=== PATIENT | female | born 1970 | race Caucasian/White ===

== ENCOUNTER 2018-02-04 05:21 | Day surgery (SDC) | payer BC, SELFPAY ==
[2018-02-04] VITALS (7 sets, daily range): BP systolic 82–150; BP diastolic 59–88; PULSE 50–76; RESP 16–18; TEMP 35.8–36.4; O2SAT 95–100; BMI 34.9
--- NOTE | 2018-02-04 | GALL_PTH ---
PATIENT: CRIS HILL LOC: [facility] [place] U#:[id number] AGE/SX: 47/F ROOM: RE02/04/[address]: Dr. Michoacano Romano MD : 1970 BED: DIS: 02/04/2018 SPEC #: [id number] RECD: 02/04/18 11:53 STATUS: ARDEN CHARIS #: [id number] SO: 02/04/18 00:[address]: Michoacano Romano DEPT: SURGICAL PATHOLOGY RECD BY: Ra Benitez ENTERED: 02/04/18 11:54 SP TYPE: TRANG GRIFFITH DR: MD Zoe Gannon PA-C Tissues: Gallbladder, NOS Procedures: Surgery Specimen Level III HEADER OPERATION: Laparoscopic cholecystectomy PRE-OP DIAGNOSIS: Acute cholelithiasis TISSUE SUBMITTED: Gallbladder MICROSCOPIC DIAGNOSIS Gallbladder, cholecystectomy: Cholesterolosis, chronic cholecystitis and cholelithiasis. AM:brenna 02/05/18 MICROSCOPIC DESCRIPTION Slides are reviewed. GROSS DESCRIPTION Received is one container labeled with the patient's name and designated gallbladder. The specimen consists of a gallbladder measuring 7.5 cm in length and up to 3.5 cm in diameter. The external surface is pink-plaza, smooth and glistening for the most part. Focally it is granular, hemorrhagic and contains cautery artifact. The gallbladder contains a small amount of green-yellow mucoid bile and multiple (five) multifaceted plaza-yellowish stones measuring in aggregate 5 x 3.5 x 2 cm and 1.5 cm in average dimension. The mucosa is bile-stained and without any mass lesions. The gallbladder wall measures 0.3 cm in thickness. System Administrator sections from the gallbladder and the cystic duct are submitted in one cassette. / SJ:brenna 02/04/18 TC:3 CPT: 72211
[2018-02-04] MEDS: Cefazolin 2 GM in 0.9% Normal Saline 100 ML IV (07:21)
--- NOTE | 2018-02-04 07:31 | PCM.OPRPT ---
Problem List (1) Calculus of gallbladder with chronic cholecystitis without obstruction Status: Acute (2) Right upper quadrant pain Status: Acute Report of Operation Date of Procedure: 02/04/18 Pre-Operative Diagnosis: k80.10 calculus of the gallbladder with chronic cholecystitis without obstruction. r10.11 right upper quadrant abdominal pain Post-Operative Diagnosis: Same Surgery/Procedure Performed:: [id number] laparoscopic cholecystectomy Type of Anesthesia:: General Anesthesiologist: Jeyson Marmolejo Estimated Blood Loss (mL): < 25 cc Fluids Replaced: 800 lr Description of Procedure: Patient brought into the operating room and placed in the supine position. Under excellent general endotracheal intubation the abdomen was sterilely prepped and draped in the usual fashion. Local was injected infraumbilically. Dissection was carried down to the fascia. The fascia was grasped with a Stratford. Veress needle was placed inside the abdomen. The abdomen was insufflated to 15 torr. A 10/12 trocar was placed without difficulty. Patient was placed in the head up and rotated to the left position. Subxiphoid #5 trocar was placed, inferior to this another #5 trocar was placed, laterally a #5 trocar was placed. All of these under direct visualization without injury to underlying structures. Fundus of the gallbladder was grasped and retracted in a cephalad direction infundibulum was grasped and retracted laterally I dissected out the cystic artery and the cystic duct. Place hemoclips proximally and distally on the artery and proximally and distally on the duct. I ligated both the artery and the duct. I deliver the gallbladder from the gallbladder bed with use of electrocautery. I placed a specimen a specimen bag and delivered through the umbilical port without difficulty. I reinflated the abdomen used electrocautery on the liver bed had good hemostasis but the whole liver bed was very raw so I decided to place some Marilee and there is well. I saw no active bleeding at the end of my case. Remove the trochars under direct visualization. I closed the fascia the umbilical port with a [id number] stitch of 0 Vicryl. Skin incisions were closed with subcuticular stitches of 4-0 Monocryl. Steri-Strips are applied sterile dressings were applied in the patient tolerated the procedure well. - Admit VTE Documentation VTE Present on Admission: No VTE Mechan Device Prophylaxis: SCD's VTE Pharm Prophylaxis ordered?: No Reason prophylaxis not ordered:: Treatment Not Indicated
--- NOTE | 2018-02-04 07:32 | PCM.DC.GB ---
Discharge Diet: Light diet - advance as tolerated Discharge Activity: May Not Drive - for 2-3 days or while taking narcotic pain medications., - - Do not drive, work heavy equipment or sign legal documents for 24 hours. May shower in (days): 1 - with the bandage in place. Additional Activity Instructions:: Pain medication may cause nausea. You should typically eat light foods as you take your pain medications. Pain medication may also cause constipation. If this is a problem for you, please discuss with your doctor. Call your doctor if your incision/area has: Continuous Slow Oozing, Sudden Increased Bleeding, Increased Pain/ Swelling, Increased Redness, Foul Smelling Discharge Call your doctor if you observe: Fever of 101 or Higher Suture Line Care: Avoid Pulling/Pushing, Avoid Pinching/Bending Additional Dressing/Incision Instructions:: Leave operative bandaids on for 2 days. When you remove dressing, leave Steri-Strips on until your follow-up appointment, or until the Steri-Strips fall off on their own. Allergies/Adverse Reactions: Allergies No Known Allergies Allergy (Verified 01/28/18 08:22) Medications to take at Discharge cholecalciferol (vitamin D3) 2,000 unit capsule 2,000 unit PO QDAY 01/20/18 ibuprofen 600 mg tablet 600 mg PO TID-QID PRN 01/20/18 Acetaminophen/Codeine #3 [Tylenol#3] 1 - 2 tab PO Q4H PRN PRN 4 Days #30 tab 02/04/18 The following prescriptions were given: Acetaminophen/Codeine #3 [Tylenol#3] 1 - 2 tab PO Q4H PRN PRN 4 Days #30 tab PRN Reason: Pain Primary Care Physician: Zoe Gamboa PA-C [Primary Care Provider] - Test Results: Test results from this visit will be discussed in further detail at your follow-up appointment, if applicable. Please Follow Up With: Michoacano Romano MD - Please call [phone] to schedule an appointment. When: 7 days after your surgery.
[2018-02-04] MEDS: Bupivacaine 0.5% PF 10 ML VIAL (08:20)
[2018-02-04] MEDS: Ibuprofen 600 MG Tablet PO (10:58)
== END 2018-02-04 12:01 | disposition home or self-care (01) ==
LOC: SDC 05:24 → AC 05:24
PROVIDERS: Family Provider Family Medicine; PCP Family Medicine; Visit Provider Surgery
PROC: (CPT 47610; principal; 2018-02-04 06:55)
DX: K80.12 Calculus of gallbladder with acute and chronic cholecystitis without obstruction (principal); E78.00 Pure hypercholesterolemia, unspecified; M19.90 Unspecified osteoarthritis, unspecified site; I10 Essential (primary) hypertension
CPT/HCPCS: 47562; 88304; 93005; J7120; J2405

== ENCOUNTER → 2018-06-18 10:48 | Outpatient (CLI) | payer BC, SELFPAY ==
--- NOTE | 2018-06-18 10:51 | BI_ITS ---
MAMMOGRAPHY - BILATERAL SCREENING REASON FOR EXAM: Female, 47 years old. Routine annual screening examination. PERTINENT HISTORY: Sister with breast cancer. Aunt with breast cancer. History of bilateral breast reduction surgery. TECHNIQUE: Digital bilateral breast jeff (3D mammographic acquisition) in the CC and MLO projections. 2-D mediolateral oblique (MLO) and craniocaudad (CC) views of both breasts were obtained. CAD: Full Field Digital Mammography with Computer Added Detection was performed. COMPARISON: Comparison is made with prior examination January 06, 2017. FINDINGS: Breast Composition: There are scattered areas of fibroglandular density. There are no dominant masses or suspicious calcifications. Stable benign-appearing bilateral cervical lymph nodes. Stable venous prominence in the right axillary region. No other significant abnormalities are identified. There has been no significant change since the prior study. BI/SCREENING MAMM (CAD), BILAT IMPRESSION: Stable bilateral screening mammogram. Yearly follow-up mammogram recommended. (A) ASSESSMENT CATEGORY: BIRADS Category 2: Benign. A letter regarding these results will be sent to the patient by the facility within 30 days. Approximately 10% of breast cancers are not detected by mammography. A normal mammogram should not delay biopsy of a clinically suspicious abnormality. [id number] Electronically Signed: Mendoza Brown MD at 12:35 EST Tel [phone], Service support ,
--- OUTSIDE RECORDS SUMMARY | 2018-08-22 19:36 | XMS RPT_ITS ---
:1970 Author Organization OHIP Care Team Providers Name Role Phone ROLDAN GAMBOA Admitting ROLDAN Orosco Attending Unavailable HILLS, ROLDAN Primary Care Unavailable HILLS, ROLDAN Consulting Unavailable PROVIDER, UNKNOWN Consulting Unavailable [place], Roldan PA-C Attending Unavailable [place], Roldan PA-C Referring Unavailable [place], Roldan PA-C Primary Care Unavailable [place], Michoacano Attending Unavailable [place], Roldan PA-C Referring Unavailable [place], Roldan PA-C Primary Care Unavailable Juan Antonio, Michoacano Attending Unavailable Juan Antonio, Michoacano Referring Unavailable [place], Roldan PA-C Primary Care Unavailable DeHortJeyson mathias Consulting Unavailable Núñez PA-C, Rani Attending Unavailable [place], Roldan PA-C Referring Unavailable [place], Roldan PA-C Primary Care Unavailable Núñez PA-C, Rani Attending Unavailable Núñez PA-C, Rani Referring Unavailable [place], Roldan PA-C Primary Care Unavailable Juan Antonio, Michoacano Attending Unavailable Polo, Michoacano Attending Unavailable Juan Antonio, Michoacano Referring Unavailable PROBLEMS PROBLEMS DATE TYPE CONDITION / CODE ATTENDING STATUS SOURCE 02/22/2018 Unknown K80.10 - Calculus Michoacano Romano Active Tanesha of gallbladder with [facility] cholecystitis Repository without obstruction / K80.10(ICD-10) 02/22/2018 Unknown R10.11 - Right Michoacano Romano Active Tanesha upper quadrant pain Community / R10.11(ICD-10) Hospital Repository 02/26/2018 Unknown I10 - Essential Michoacano Polo Active [facility] (primary) [facility] hypertension / Hospital I10(ICD-10) Repository PROCEDURES PROCEDURES No Procedure Records FoundRESULTS RESULTS SCREENING MAMM (CAD), Observed: 06/18/2018 Status: F Source: [facility] 10:51 AM [facility] REPOSITORY [facility] Imaging Services [address] [place] [address] SCREENING MAMM (CAD), BILAT MR#: [id number] Acct: [id number] Name: CRIS HILL Rep #: [id number] : 1970 F 47 From: Mendoza Brown MD PCP: Roldan Gamboa PA-C Status: REG CLI Study: SCREENING MAMM (CAD), BILAT Date of Exam: 06/18/18 Exam# [id number] Ordering Dr: Roldan Gamboa PA-C MAMMOGRAPHY - BILATERAL SCREENING REASON FOR EXAM: Female, 47 years old. Routine annual screening examination. PERTINENT HISTORY: Sister with breast cancer. Aunt with breast cancer. History of bilateral breast reduction surgery. TECHNIQUE: Digital bilateral breast jeff (3D mammographic acquisition) in the CC and MLO projections. 2-D mediolateral oblique (MLO) and craniocaudad (CC) views of both breasts were obtained. CAD: Full Field Digital Mammography with Computer Added Detection was performed. COMPARISON: Comparison is made with prior examination January 06, 2017. FINDINGS: Breast Composition: There are scattered areas of fibroglandular density. There are no dominant masses or suspicious calcifications. Stable benign-appearing bilateral cervical lymph nodes. Stable venous prominence in the right axillary region. No other significant abnormalities are identified. There has been no significant change since the prior study. BI/SCREENING MAMM (CAD), BILAT IMPRESSION: Stable bilateral screening mammogram. Yearly follow-up mammogram recommended. (A) ASSESSMENT CATEGORY: BIRADS Category 2: Benign. A letter regarding these results will be sent to the patient by the facility within 30 days. Approximately 10% of breast cancers are not detected by mammography. A normal mammogram should not delay biopsy of a clinically suspicious abnormality. [id number] Electronically Signed: Mendoza Brown MD at 12:35 EST Tel [phone], Service support , CC: VONDA Gamboa Industrial Sweeper Cleaner: Signed SURGERY VISIT REPORT Observed: 02/18/2018 Status: F Source: [place] 3:51 PM [facility] RE[facility]ITORY [facility] [address] [place] [address] OFFICE VISIT Date of Service: 02/18/18 MR#: [id number] Acct: [id number] Name: CRIS HILL Rep #: [id number] : 1970 Provider: Rani Núñez PA-C Age/Sex: 47/F Location: [facility] Status: Signed Intake Intake Visit Reasons: 1 WK F/U Gall Bladder Surgery DP 02/04 Chief Complaint: f/u lap tamika DP 9- Marble Mason Required: No Is patient in pain?: No Allergies No Known Allergies Allergy (Verified 02/18/18 13:18) Medications cholecalciferol (vitamin D3) 2,000 unit capsule 2,000 unit PO QDAY 01/20/18 [History Confirmed 01/28/18] ibuprofen 600 mg tablet 600 mg PO TID-QID PRN 01/20/18 [History Confirmed 01/28/18] Acetaminophen/Codeine #3 [Tylenol#3] 1 - 2 tab PO Q4H PRN PRN 4 Days #30 tab 02/04/18 [Rx] Is last menstrual period known: No Post menopausal: No Patient : No Subjective Details: Patient is a 47 y/o female I am following for acute cholelithiasis. Dr. Romano performed a laparoscopic cholecystectomy on 02/04/18. Patient tolerated the procedure well. Pathology demonstrated chronic cholecystitis and cholelithiasis. Patient notes intermittent right-sided sharp chest discomfort. She is unsure what brings this discomfort on. Patient notes her appetite has been normal. She notes her bowel habits have been slow to return. Patient returns today for a follow-up. She is noting her right- sided sharp chest discomfort has resolved. She notes her bowel habits have returned to normal. Objective Details: Abdomen- incisions c/d/i. No erythema or infection noted. Assessment AND Plan Problems 1. Calculus of gallbladder with chronic cholecystitis without obstruction K80.10 Plan - RTW letter given to patient for 03/01/18. - Follow-up as needed Coding Level of Care Code Global Post Op Diagnoses Calculus of gallbladder with chronic cholecystitis without obstruction K80.10 02/18/18 1551 <Electronically signed by Rani Núñez PA-C> Date Rani Núñez PA-C Cosigner Signature: Date (if applicable) CC: OPERATIVE REPORT Observed: 02/12/2018 Status: F Source: [place] 7:15 PM [facility] REPOSITORY [facility] Medical Records Department [address] [place] [address] Operative Report 02/04/18 0731 MR#: [id number] Acct: [id number] Name: CRIS HILL Rep #: [id number] : 1970 47 From: Michoacano Romano MD PCP: Roldan Gamboa PA-C Status: [facility] Y Location: [facility] Problem List (1) Calculus of gallbladder with chronic cholecystitis without obstruction Status: Acute (2) Right upper quadrant pain Status: Acute Report of Operation Date of Procedure: 02/04/18 Pre-Operative Diagnosis: k80.10 calculus of the gallbladder with chronic cholecystitis without obstruction. r10.11 right upper quadrant abdominal pain Post-Operative Diagnosis: Same Surgery/Procedure Performed:: 39444 laparoscopic cholecystectomy Type of Anesthesia:: General Anesthesiologist: Jeyson Marmolejo Estimated Blood Loss (mL): < 25 cc Fluids Replaced: 800 lr Description of Procedure: Patient brought into the operating room and placed in the supine position. Under excellent general endotracheal intubation the abdomen was sterilely prepped and draped in the usual fashion. Local was injected infraumbilically. Dissection was carried down to the fascia. The fascia was grasped with a Sondheimer. Veress needle was placed inside the abdomen. The abdomen was insufflated to 15 torr. A 10/12 trocar was placed without difficulty. Patient was placed in the head up and rotated to the left position. Subxiphoid #5 trocar was placed, inferior to this another #5 trocar was placed, laterally a #5 trocar was placed. All of these under direct visualization without injury to underlying structures. Fundus of the gallbladder was grasped and retracted in a cephalad direction infundibulum was grasped and retracted laterally I dissected out the cystic artery and the cystic duct. Place hemoclips proximally and distally on the artery and proximally and distally on the duct. I ligated both the artery and the duct. I deliver the gallbladder from the gallbladder bed with use of electrocautery. I placed a specimen a specimen bag and delivered through the umbilical port without difficulty. I reinflated the abdomen used electrocautery on the liver bed had good hemostasis but the whole liver bed was very raw so I decided to place some Marilee and there is well. I saw no active bleeding at the end of my case. Remove the trochars under direct visualization. I closed the fascia the umbilical port with a euenbt-ye-doqrs stitch of 0 Vicryl. Skin incisions were closed with subcuticular stitches of 4-0 Monocryl. Steri- Strips are applied sterile dressings were applied in the patient tolerated the procedure well. - Admit VTE Documentation VTE Present on Admission: No VTE Mechan Device Prophylaxis: SCD's VTE Pharm Prophylaxis ordered?: No Reason prophylaxis not ordered:: Treatment Not Indicated 02/12/181914 <Electronically signed by Michoacano Romano MD> Date Michoacano Romano MD CC: VONDA Gamboa; Michoacano Romano MD; Jeyson Marmolejo MD Signed SURGERY VISIT REPORT Observed: 02/11/2018 Status: F Source: [place] 2:55 PM [facility] REPOSITORY [facility] [address] [place] [address] [address] [place] [address] OFFICE VISIT Date of Service: 02/11/18 MR#: [id number] Acct: [id number] Name: CRIS HILL Rep #: [id number] : 1970 Provider: Rani Núñez PA-C Age/Sex: 47/F Location: [facility] Status: Signed Intake Vital Signs02/11/18 Temperature 98.6 F 02/11/18 Temperature Source Oral Intake Visit Reasons: Gall Bladder Surgery DP 02/04 Chief Complaint: gallstones Marble Mason Required: No Is patient in pain?: No Allergies No Known Allergies Allergy (Verified 02/11/18 13:03) Medications cholecalciferol (vitamin D3) 2,000 unit capsule 2,000 unit PO QDAY 01/20/18 [History Confirmed 01/28/18] ibuprofen 600 mg tablet 600 mg PO TID-QID PRN 01/20/18 [History Confirmed 01/28/18] Acetaminophen/Codeine #3 [Tylenol#3] 1 - 2 tab PO Q4H PRN PRN 4 Days #30 tab 02/04/18 [Rx] Subjective Details: Patient is a 47 y/o female I am following for acute cholelithiasis. Dr. Romano performed a laparoscopic cholecystectomy on 02/04/18. Patient tolerated the procedure well. Pathology demonstrated chronic cholecystitis and cholelithiasis. Patient notes intermittent right-sided sharp chest discomfort. She is unsure what brings this discomfort on. Patient notes her appetite has been normal. She notes her bowel habits have been slow to return. Objective Details: Abdomen- soft, nontender. Incisions c/d/i. No erythema or infection noted. Hypoactive bowel sounds. Assessment AND Plan Problems 1. Calculus of gallbladder with chronic cholecystitis without obstruction K80.10 Plan - Recommend Miralax twice daily - Avoid acidic foods - Follow-up in 1 week Coding Level of Care Code Global Post Op Diagnoses Calculus of gallbladder with chronic cholecystitis without obstruction K80.10 02/11/18 1455 <Electronically signed by Rani Núñez PA-C> Date Rani Núñez PA-C Cosigner Signature: Date (if applicable) CC: DISCHARGE INSTRUCTION Observed: 02/04/2018 Status: F Source: [place] 7:33 AM [facility] REPOSITORY [facility] Medical Records Department [address] [place] [address] Instructions for Home/Discharge Instructions 02/04/18 0732 MR#: [id number] Acct: [id number] Name: CRIS HILL Rep #: [id number] : 1970 47 From: Michoacano Romano MD PCP: Roldan Gamboa PA-C Status: REG [facility] Discharge Diet: Light diet - advance as tolerated Discharge Activity: May Not Drive - for 2-3 days or while taking narcotic pain medications., - - Do not drive, work heavy equipment or sign legal documents for 24 hours. May shower in (days): 1 - with the bandage in place. Additional Activity Instructions:: Pain medication may cause nausea. You should typically eat light foods as you take your pain medications. Pain medication may also cause constipation. If this is a problem for you, please discuss with your doctor. Call your doctor if your incision/area has: Continuous Slow Oozing, Sudden Increased Bleeding, Increased Pain/ Swelling, Increased Redness, Foul Smelling Discharge Call your doctor if you observe: Fever of 101 or Higher Suture Line Care: Avoid Pulling/Pushing, Avoid Pinching/Bending Additional Dressing/Incision Instructions:: Leave operative bandaids on for 2 days. When you remove dressing, leave Steri-Strips on until your follow-up appointment, or until the Steri-Strips fall off on their own. Allergies/Adverse Reactions: Allergies No Known Allergies Allergy (Verified 01/28/18 08:22) Medications to take at Discharge cholecalciferol (vitamin D3) 2,000 unit capsule 2,000 unit PO QDAY 01/20/18 ibuprofen 600 mg tablet 600 mg PO TID-QID PRN 01/20/18 Acetaminophen/Codeine #3 [Tylenol#3] 1 - 2 tab PO Q4H PRN PRN 4 Days #30 tab 02/04/18 The following prescriptions were given: Acetaminophen/Codeine #3 [Tylenol#3] 1 - 2 tab PO Q4H PRN PRN 4 Days #30 tab PRN Reason: Pain Primary Care Physician: Roldan Gamboa PA-C [Primary Care Provider] - Test Results: Test results from this visit will be discussed in further detail at your follow-up appointment, if applicable. Please Follow Up With: Michoacano Romano MD - Please call [phone] to schedule an appointment. When: 7 days after your surgery. 02/04/18 0733 <Electronically signed by Michoacano Romano MD> Date Michoacano Romano MD CC: VONDA Gamboa; Jeyson Marmolejo MD GALLBLADDER Observed: 02/04/2018 Status: F Source: [place] 12:00 AM [facility] REPOSITORY Patient: CRIS HILL : 1970 (47/F) Acct Num: [id number] Phys: Michoacano Romano MD Unit Num: [id number] Loc: [facility] Specimen: [id number] Received: 02/04/18 - 1153 Spec Type: GALLBLADDE TISSUES TISSUES: Gallbladder, NOS GROSS DESCRIPTION Received is one container labeled with the patient's name and designated gallbladder. The specimen consists of a gallbladder measuring 7.5 cm in length and up to 3.5 cm in diameter. The external surface is pink-plaza, smooth and glistening for the most part. Focally it is granular, hemorrhagic and contains cautery artifact. The gallbladder contains a small amount of green- yellow mucoid bile and multiple (five) multifaceted plaza-yellowish stones measuring in aggregate 5 x 3.5 x 2 cm and 1.5 cm in average dimension. The mucosa is bile-stained and without any mass lesions. The gallbladder wall measures 0.3 cm in thickness. Web Application Developer sections from the gallbladder and the cystic duct are submitted in one cassette. / SJ:brenna 02/04/18 TC:3 CPT: 43802 HEADER OPERATION: Laparoscopic cholecystectomy PRE-OP DIAGNOSIS: Acute cholelithiasis TISSUE SUBMITTED: Gallbladder MICROSCOPIC DESCRIPTION Slides are reviewed. MICROSCOPIC DIAGNOSIS Gallbladder, cholecystectomy: Cholesterolosis, chronic cholecystitis and cholelithiasis. AM:brenna 02/05/18 Signed David [facility] 02/05/18 <signature on file> Performed By: #### PGALL #### [facility] [address] [place], [address] 12 LEAD ELECTROCARDIOGRAM Observed: 02/02/2018 Status: F Source: [place] 1:10 PM [facility] REPOSITORY [facility] Cardiovascular Services [address] [place] [address] 12 Lead EKG 01/29/18 1223 MR#: [id number] Acct: [id number] Name: CRIS HILL Rep #: [id number] : 1970 47 From: Michoacano Polo MD Attending Dr: Michoacano Romano MD Status: PRE SDC Ordering Dr: Michoacano Romano MD Date: 01/29/18 Location: [facility] Sex: F C Admitted: Test Reason : PRE-OP Blood Pressure : / mmHG Vent. Rate : 068 BPM Atrial Rate : 068 BPM P-R Int : 158 ms QRS Dur : 082 ms QT Int : 384 ms P-R-T Axes : 031 022 022 degrees QTc Int : 408 ms Normal sinus rhythm with sinus arrhythmia Normal ECG Confirmed by MICHOACANO POLO ([id number]), telegraph editor PALMER CHONG ([id number]) on 02/02/2018 1:10:32 PM Referred By: Michoacano Romano Confirmed By:MICHOACANO POLO 02/02/18 1310 Date Michoacano Polo MD CC: VONDA Gamboa; Michoacano Romano MD Signed SURGERY VISIT REPORT Observed: 01/21/2018 Status: F Source: [place] 1:01 PM [facility] REPOSITORY [facility] [address] [place] [address] [address] [place] [address] OFFICE VISIT Date of Service: 01/20/18 MR#: [id number] Acct: [id number] Name: CRIS HILL Rep #: [id number] : 1970 Provider: Michoacano Romano MD Age/Sex: 47/F Location: [facility] Status: Signed Intake Vital Signs01/20/18 Height 5 ft 4 in 01/20/18 Weight: 203 lb 5 oz 01/20/18 Body Mass Index (BMI) 34.9 01/20/18 Blood Pressure 150/82 Intake Visit Reasons: Cholelithiasis [facility] 12/31 aware to bring disc Chief Complaint: gallstones Marble Mason Required: No Is patient in pain?: No Allergies No Known Allergies Allergy (Verified 01/20/18 09:29) Medications cholecalciferol (vitamin D3) 2,000 unit capsule 2,000 unit PO QDAY 01/20/18 [History Confirmed 01/20/18] ibuprofen 600 mg tablet 600 mg PO TID-QID PRN 01/20/18 [History Confirmed 01/20/18] Is last menstrual period known: No Post menopausal: Yes Patient : No PFSH Medical History Gallstones (Acute) Osteoarthritis (Acute) HTN (hypertension) (Chronic) Surgical History History of bilateral breast reduction surgery (Acute) History of partial hysterectomy (Acute) Family History Father Heart disease Sister Breast cancer Social History Smoking Status: Never smoker HPI HPI HPI: CRIS HILL, is a 47 F who presents to the office today for evaluation of right upper quadrant abdominal pain. Patient said in August she had increasing incidence of this. It was associated with eating greasy foods and she had radiation into her back. She was seen by her primary care physician and right upper quadrant ultrasound was ordered in [facility] which showed multiple gallstones with the gallbladder wall being normal thickness and the common bile duct being 3.8 mm in diameter. She states that probably over the last 4-5 months she has been noticing increasing discomfort along her right rib cage. She has had no change in her bowel or bladder habits. ROS General General: Yes weight change and fatigue; no appetite, colon cancer, breast cancer or weakness HEENT HEENT: Yes difficulty swallowing; no eye injury, eye surgery, swollen glands or hoarseness Endo Endocrine: No thyroid disease, diabetes mellitus, thyroid cancer, Hair loss, heat intolerance or cold intolerance Musc Musculoskeletal: Yes arthritis; no back problems, rheumatoid arthritis, gout or joint pain Cardio Cardiovascular: Yes high blood pressure; no murmur, pacemaker, heart disease, atrial fibrillation, heart attack, heart stent, palpitations, shortness of breat with exertion or chest pain Resp Respiratory: No shortness of breath, No sleep apnea, No cough, No COPD, No asthma, No emphysema, No wheezing Gastro Gastrointestinal: Yes abdominal pain, No nausea or vomiting, No diarrhea, No constipation, No blood in stool, No acid reflux, No hemorrhoids, No ulcers, Yes gallbladder problem, No black,tarry stools [place] Hematologic: No blood thinners, No blood disorders, No bleeding, No anemia, No blood clots Neuro Neurologic: No weakness Exam Const General: well developed, no acute distress, well hydrated Orientation: oriented to person, oriented to place, oriented to time [facility] Head: normocephalic, atraumatic Ears: external ears normal Mouth: moist mucous membranes Eyes Sclera: sclerae normal Pupils: normal by confrontation Neck Neck: no lymphadenopathy noted Neck mass: No Thyroid: symmetrical, thyroid normal Chest Chest palpation AND inspection: normal inspection of the chest Resp Effort AND Inspection: normal respiratory effort Auscultation: clear to auscultation bilaterally Percussion: percussion normal Cardio Rate: regular rate Rhythm: regular rhythm Heart Sounds: no murmurs GI Palpation: soft, tender, no masses, no hepatosplenomegaly Auscultation: normal bowel sounds Rectal Exam: other Other: Rectal exam deferred. Extrem General: no clubbing, cyanosis or edema, normal to inspection Assessment AND Plan Problems 1. Calculus of gallbladder with chronic cholecystitis without obstruction K80.10 2. Right upper quadrant abdominal pain R10.11 Plan My plan is to perform a laparoscopic cholecystectomy with intraoperative cholangiogram. The planned surgical procedure was discussed extensively with the patient. The risks, benefits, anticipated outcomes and possible complication were mentioned. My staff has also explained the procedure in understandable terms and the patient was given the option to take printed material concerning the planned procedure. The patient had the opportunity to ask questions concerning the planned procedure. The patient freely consents to the planned procedure. Coding Level of Care Code Off vis,new,level 3 Diagnoses Calculus of gallbladder with chronic cholecystitis without obstruction K80.10 Cholelithiasis location: gallbladder Cholecystitis acuity: chronic Right upper quadrant abdominal pain R10.11 01/21/18 1301 <Electronically signed by Michocaano Romano MD> Date Michoacano Romano MD Cosigner Signature: Date (if applicable) CC: VONDA ORR RUQ (GB/PANCREAS) Observed: 12/31/2017 Status: F Source: [facility] 8:21 AM [place] [address] Patient: CRIS HILL Phone#: : 1970 Age: 47 Gender: F Pt. Type: Out Account: [id number] Location: Ordering: ROLDANRICARDA GAMBOA Exam Date: 12/31/2017/7:48 Family Phys: ROLDAN GAMBOA Charge Code: 325422 Physician: Day Order #: [id number] DLP Dose#: PROCEDURE: RUQ (GB) ULTRASOUND COMPARISON: None. INDICATIONS: Right Rib Pain FINDINGS: LIVER: Fatty changes of the liver are present. There is no evidence of focal abnormality. BILIARY: Multiple intraluminal calculi are present. The gallbladder wall is normal in thickness. The common bile duct is normal in caliber at 3.8 mm. PANCREAS: Normal. No visible mass, abnormal atrophy, or ductal dilatation. RIGHT KIDNEY: Normal. No mass or obstruction. OTHER: Negative. CONCLUSION: 1. Cholelithiasis. DICTATED BY: KIERSTEN SANCHEZ MD ON 12/31/2017 AT 8:40 APPROVED BY: KIERSTEN SANCHEZ MD ON 12/31/2017 AT 8:40 ALLERGIES ALLERGIES DATE TYPE / CODE NAME / CODE REACTION SEVERITY SOURCE 02/18/2018 Drug No Known Unknown [facility] Allergy/4160 Allergies/F00 Hospital 53426(SNOMED 8114470(RXNOR Repository CT) M) ENCOUNTERS ENCOUNTERS ADMIT/DISCHARGE ACCOUNT ADMITTING ENCOUNTER LOCATION SOURCE NUMBER CLASS 06/18/2018 [id number] Ambulatory [facility] 9 [facility] ing:[facility] Repository 02/18/2018/ [id number] Ambulatory BMSBuilding:B [facility] 8 0 [place] [place] 02/11/2018/ [id number] Ambulatory BMSBuilding:B [facility] 8 7 [facility] Repository 02/04/2018/ [id number] Ambulatory [facility] Tanesha 8 2 [facility] ing:[facility] Repository 02/04/2018 [id number] Ambulatory BMSBuilding:B [facility] 7 [place].[facility] Repository 01/29/2018 [id number] Ambulatory BMSBuilding:W [facility] 9 [facility] Repository 01/20/2018/ [id number] Ambulatory BMSBuilding:B Tanesha 8 1 [facility] Repository 12/31/2017/ [id number] [place], Ambulatory [facility] 8 [facility] Repository PAYERS PAYERS ENCOUNTER GUARANTOR PAYER SUBSCRIBER SOURCE 06/18/2018 CRIS L Primary CRIS L [facility] [id number] CR Insurance:ANTHEMPolicy SOWERSDOB: [address] Number: [id number] [facility] [address]Mzv: 330 [id number] Repository [phone] () ve Date:[id number] [place] [id number]: 06/18/2018 Secondary NOT GIVENUNK T[place]ha Insurance:SELF PAY [facility] Number: Effective Repository Date:2018-04-28 02/18/2018 CRIS L Primary CRIS L [place] [id number] CR Insurance:ANTHEMPolicy SOWERSDOB: [address] Number: [id number] [address]Mjd: 330 [id number] Repository [phone] () ve Date:[id number], [place] [address]YQ: 02/18/2018 Secondary NOT GIVENUNK [facility] Insurance:SELF PAY [facility] Hospital Number: Effective Repository Date:2018-02-11 02/11/2018 CRIS L Primary CRIS L Tanesha [id number] CR Insurance:ANTHEMPolicy SOWERSDOB: [address] Number: [id number] [facility] [address]Jby: [phone]) [id number] Repository [phone] (HP) ve Date:[id number] [address] [place] [address] 14912VB: 02/11/2018 Secondary NOT GIVENUNK [place] Insurance:SELF PAY [facility] Number: Effective Repository Date:2018-02-11 02/04/2018 CRIS L Primary CRIS L Al[place] [id number] CR Insurance:ANTHEMPolicy SOWERSDOB: Community [address] [place] [address], [place] Number: [id number] [facility] [id number]: [phone]) [id number] Repository [phone] (HP) ve Date:[id number] [address] [place] [address] 53449EQ: 02/04/2018 Secondary NOT GIVENUNK Tanesha Insurance:SELF PAY [facility] Number: Effective Repository Date:2018-01-22 02/04/2018 CRIS L Primary CRIS L [place] [id number] CR Insurance:ANTHEMPolicy SOWERSDOB: [address], [place] Number: [id number] Hospital 79780Qjy: (330) [id number] Repository [phone] (HP) ve Date:[id number] [address] [place] [address] 76742GW: 02/04/2018 Secondary NOT GIVENUNK [place] Insurance:SELF PAY [facility] Number: Effective Repository Date:2018-02-04 01/29/2018 CRIS L Primary CRIS L Tanesha [id number] CR Insurance:ANTHEMPolicy SOWERSDOB: [address] [place] Number: [id number] [facility] [address]Syp: [phone]) [id number] Repository [phone] (HP) ve Date:[id number] [address] [place] [address] [id number]: 01/29/2018 Secondary NOT GIVENUNK [place] Insurance:SELF PAY [facility] Hospital Number: Effective Repository Date:2018-01-29 01/20/2018 CRIS Gary Primary CRIS Gary Albers [id number] CR Insurance:Nayan DE PAZB: [address] Number: [id number] Hospital [address]Ucw: 330 [id number] Repository [phone] (HP) ve Date:[id number] [address], [place] [address]UF: 01/20/2018 Secondary NOT GIVENUNK Tanesha Insurance:SELF PAY [facility] Number: Effective Repository Date:2018-01-20 12/31/2017 CRIS Primary CRIS Espinal [place] SOWERSDOB: Insurance:DORI DE PAZB: [facility] [id number] [facility] [id number] Repository [address] [place] [address] Number: [place], [place] [address]Qgm: 330 [id number] [phone] (HP) ve Date:Plan Name:B2
== END ==
PROVIDERS: Family Provider Family Medicine; PCP Family Medicine; Referring Provider Family Medicine; Visit Provider Family Medicine
DX: Z12.31 Encounter for screening mammogram for malignant neoplasm of breast (principal)
CPT/HCPCS: 77063; 77067

== ENCOUNTER → 2020-10-12 12:07 | Outpatient (CLI) | payer BC, SELFPAY ==
--- NOTE | 2020-10-12 12:13 | BI_ITS ---
MAMMOGRAPHY - BILATERAL SCREENING REASON FOR EXAM: Female, 50 years old. Routine annual screening examination. PERTINENT HISTORY: Sister with breast cancer. Aunt with breast cancer. History of prior bilateral breast reduction surgery. TECHNIQUE: Digital bilateral breast monika (3D mammographic acquisition) in the CC and MLO projections. 2-D mediolateral oblique (MLO) and craniocaudad (CC) views of both breasts were obtained. CAD: Full Field Digital Mammography with Computer Added Detection was performed. COMPARISON: Comparison is made with prior study dated 06/18/2018. FINDINGS: Breast Composition: There are scattered areas of fibroglandular density. There are no dominant masses or suspicious calcifications. Stable benign appearing bilateral axillary lymph nodes. No other significant abnormalities are identified. There has been no significant change since the prior study. BI/SCRN MAMM (CAD)W/MONIKA BILAT IMPRESSION: Stable bilateral screening mammogram. Yearly follow-up mammogram recommended. (A) ASSESSMENT CATEGORY: BIRADS Category 2: Benign. A letter regarding these results will be sent to the patient by the facility within 30 days. Approximately 10% of breast cancers are not detected by mammography. A normal mammogram should not delay biopsy of a clinically suspicious abnormality. [id number] Electronically Signed: Mendoza Brown MD at 13:10 EDT , Service support ,
== END ==
PROVIDERS: PCP Family Medicine; Referring Provider Family Medicine; Visit Provider Family Medicine
DX: Z12.31 Encounter for screening mammogram for malignant neoplasm of breast (principal); Z80.3 Family history of malignant neoplasm of breast
CPT/HCPCS: 77063; 77067

== ENCOUNTER → 2023-07-03 | Outpatient (CLI) | payer BC, SELFPAY ==
--- NOTE | 2023-07-03 07:51 | BI_ITS ---
MAMMOGRAPHY - BILATERAL SCREENING REASON FOR EXAM: Female, 52 years old. Routine annual screening examination. PERTINENT HISTORY: Sister with breast cancer. Aunt with breast cancer. TECHNIQUE: Digital bilateral breast monika (3D mammographic acquisition) in the CC and MLO projections. 2-D mediolateral oblique (MLO) and craniocaudad (CC) views of both breasts were obtained. CAD: Full Field Digital Mammography with Computer Added Detection was performed. COMPARISON: Comparison is made with prior study dated October 12, 2020 and June 18, 2018. FINDINGS: Breast Composition: There are scattered areas of fibroglandular density. There are no dominant masses or suspicious calcifications. Stable small benign-appearing bilateral axillary lymph nodes. No other significant abnormalities are identified. There has been no significant change since the prior study. BI/SCRN MAMM (CAD)W/MONIKA BILAT IMPRESSION: Stable bilateral screening mammogram. Yearly follow-up mammogram recommended. (A) ASSESSMENT CATEGORY: BIRADS Category 2: Benign. A letter regarding these results will be sent to the patient by the facility within 30 days. Approximately 10% of breast cancers are not detected by mammography. A normal mammogram should not delay biopsy of a clinically suspicious abnormality. [id number] Electronically Signed: Mendoza Brown MD at 8:28 EST ,
--- OUTSIDE RECORDS SUMMARY | 2023-07-03 07:58 | XMS RPT_ITS | CCD ---
Author Name Unknown Address [address] [place] [address] Organization [facility] Care Team Providers Care Life Manager Name Role Phone Kajal Dunaway Unavailable Unavailable Kajal Dunaway Unavailable Unavailable PROSPECT HEIGHTS, ROLDAN Attending Unavailable PROSPECT HEIGHTS, ROLDAN Admitting Unavailable PROSPECT HEIGHTS, ROLDAN Primary Care Unavailable PROSPECT HEIGHTS, ROLDAN Consulting Unavailable PROVIDER, UNKNOWN Consulting Unavailable PROSPECT HEIGHTS, ROLDAN Attending Unavailable PROSPECT HEIGHTS, ROLDAN Admitting Unavailable PROSPECT HEIGHTS, ROLDAN Primary Care Unavailable PROSPECT HEIGHTS, ROLDAN Consulting Unavailable PROVIDER, UNKNOWN Consulting Unavailable PROSPECT HEIGHTS, ROLDAN Attending Unavailable PROSPECT HEIGHTS, ROLDAN Admitting Unavailable PROSPECT HEIGHTS, ROLDAN Primary Care Unavailable PROSPECT HEIGHTS, ROLDAN Consulting Unavailable PROVIDER, UNKNOWN Consulting Unavailable Allergies Allergy Classification Reported Allergen(s) Allergy Type Date of Onset Reaction(s) Facility (2 sources) FLUoxetine drug allergy 02-17-2017 jason/christina [facility] Work Phone: Medications Completed/Discontinued Medications Medication Drug Class(es) Dates Sig (Normalized) Sig (Original) biotin 5 mg oral capsule (2 sources) Start: 09-18-2015 take 1 capsule by mouth once daily BIOTIN 5000 MCG CAPS 1 capsule by mouth daily BIOTIN 85798948713 [employer] PA-C cholecalciferol 87234 unt oral capsule (2 sources) Vitamin D Start: 09-18-2015 take 1 capsule by mouth every week VITAMIN D3 53067 UNIT CAPS 1 capsule by mouth once a week CHOLECALCIFEROL 78107770380 [employer] PA-C doxycycline anhydrous 40 mg delayed release oral capsule (2 sources) Tetracycline-clas s Drug Start: 09-18-2015 take 1 capsule by mouth once daily ORACEA 40 MG CPDR 1 capsule by mouth daily DOXYCYCLINE 84292892915 Roldan Gamboa PA-C ibuprofen 200 mg oral tablet (2 sources) Nonsteroidal Anti-inflammatory Drug Start: 09-18-2015 IBUPROFEN 200 MG TABS 1 tablet by mouth as needed for pain IBUPROFEN 65640168960 Roldan Gamboa PA-C magnesium (2 sources) Start: 09-18-2015 take 1 tablet by mouth once daily MAGNESIUM 250 MG TABS 1 tablet by mouth daily MAGNESIUM 37155199682 Roldan Gamboa PA-C Problems Active Problems Problem Classification Problem Date Documented Date Episodic/Chronic Diabetes mellitus with complications (1 source) Type 2 diabetes mellitus with hyperglycemia; Translations: [Type 2 diabetes mellitus with hyperglycemia] Onset: 05-19-2023 Chronic Diabetes mellitus without complication (2 sources) Type 2 diabetes mellitus without complications; Translations: [Type 2 diabetes mellitus without complications] Onset: 05-19-2023 Chronic Disorders of lipid metabolism (2 sources) Pure hyperglyceridemia; Translations: [Pure hyperglyceridemia] Onset: 05-19-2023 Chronic Esophageal disorders (2 sources) Gastroesophageal reflux disease; Translations: [Gastro-esophageal reflux disease without esophagitis] Onset: 02-17-2017 02-17-2017 Chronic Essential hypertension (1 source) Essential (primary) hypertension; Translations: [Essential (primary) hypertension] Onset: 05-19-2023 Chronic Nutritional deficiencies (2 sources) Vitamin D deficiency; Translations: [Vitamin D deficiency, unspecified] Onset: 09-18-2015 09-18-2015 Chronic Past or Other Problems Problem Classification Problem Date Documented Da te Episodic/Chronic Medical examination/evaluation (2 sources) Encounter for general adult medical examination without abnormal findings; Translations: [Encounter for general adult medical examination without abnormal findings] Onset: 09-18-2015 09-18-2015 Episodic Other gastrointestinal disorders (2 sources) Dysphagia; Translations: [Dysphagia, unspecified] Onset: 02-17-2017 02-17-2017 Episodic Other non-traumatic joint disorders (2 sources) Joint pain; Translations: [Pain in unspecified joint] Onset: 09-18-2015 09-18-2015 Episodic Unclassified (4 sources) Encounter for screening for diabetes mellitus; Translations: [Encounter for screening for lipoid disorders] Onset: 09-18-2015 09-18-2015 Episodic Results Test Name Value Interpretation Reference Range Facil ity Vital Signs Date Time Vital Sign Value Performing Clinician Facility 02-17-2017 10:44-0400 BMI (Body Mass Index) 35.46 kg/m2 [facility] Work Phone: 02-17-2017 10:44-0400 Body Temperature 97.9 [degF] [facility] Work Phone: 02-17-2017 10:44-0400 BP Diastolic 85 mm[Hg] [facility] Work Phone: 02-17-2017 10:44-0400 BP Systolic 129 mm[Hg] [facility] Work Phone: 02-17-2017 10:44-0400 Height 160.02 cm [facility] Work Phone: 02-17-2017 10:44-0400 Pulse (Heart Rate) 76 /min [facility] Work Phone: 02-17-2017 10:44-0400 Respiratory Rate 20 /min [facility] Work Phone: 02-17-2017 10:44-0400 Weight 90.81 kg [facility] Work Phone: 09-18-2015 10:21-0400 BSA (Body Surface Area) 1.91 m2 [facility] Work Phone: 09-18-2015 10:21-0400 Height 160.02 cm [facility] Work Phone: Encounters Encounter Date Encounter Type Care Provider Facility Start: 05-19-2023 End: 05-19-2023 ambulatory [facility] Procedures Date Procedure Procedure Detail Performing Clinician Start: 09-18-2015 End: 09-19-2015 *CMP Complete Metabolic Panel Roldan Gamboa PA-C Work Phone: Start: 09-18-2015 End: 09-19-2015 25-Hydroxyvitamin D2+25-Hydroxyvitamin D3 [Mass/volume] in Serum or Plasma Roldan Gamboa PA-C Work Phone: Start: 09-18-2015 End: 09-19-2015 Lipid 1996 panel - Serum or Plasma Roldan Gamboa PA-C Work Phone: Start: 09-18-2015 End: 09-19-2015 *CMP Complete Metabolic Panel Roldan Gamboa PA-C Work Phone: Start: 09-18-2015 End: 09-19-2015 25-Hydroxyvitamin D2+25-Hydroxyvitamin D3 [Mass/volume] in Serum or Plasma Roldan Gamboa PA-C Work Phone: Start: 09-18-2015 End: 09-19-2015 Lipid panel [AGGREGATE] Roldan Gamboa PA-C Work Phone: Plan of Treatment Date Care Activity Detail Author Start: 02-23-2017 End: 02-23-2017 Appointment Appointment [facility] [employer] Work Phone: Start: 02-17-2017 End: 02-18-2017 Esophagogastroduodenoscopy transoral diagnostic EGD; diagnostic [facility] [employer] Work Phone: Start: 02-17-2017 End: 02-18-2017 Uppr gi endoscopy, diagnosis EGD; diagnostic [facility] [employer] Work Phone: Start: 12-17-2015 End: 09-18-2015 25-Hydroxyvitamin D2+25-Hydroxyvitamin D3 [Mass/volume] in Serum or Plasma *Vitamin D (Calciferol) [facility] [employer] Work Phone: Start: 12-17-2015 End: 09-18-2015 25-Hydroxyvitamin D2+25-Hydroxyvitamin D3 [Mass/volume] in Serum or Plasma *Vitamin D (Calciferol) [facility] [employer] Work Phone: Start: 09-18-2015 End: 09-19-2015 *CMP Complete Metabolic Panel *CMP Complete Metabolic Panel [facility] [employer] Work Phone: Start: 09-18-2015 End: 09-19-2015 25-Hydroxyvitamin D2+25-Hydroxyvitamin D3 [Mass/volume] in Serum or Plasma *Vitamin D (Calciferol) [facility] [employer] Work Phone: Start: 09-18-2015 End: 09-19-2015 Lipid panel [AGGREGATE] *Lipid Profile [facility] [employer] Work Phone: Start: 09-18-2015 End: 09-19-2015 *CMP Complete Metabolic Panel *CMP Complete Metabolic Panel [facility] [employer] Work Phone: Start: 09-18-2015 End: 09-19-2015 25-Hydroxyvitamin D2+25-Hydroxyvitamin D3 [Mass/volume] in Serum or Plasma *Vitamin D (Calciferol) [facility] [employer] Work Phone: Start: 09-18-2015 End: 09-19-2015 Lipid panel [AGGREGATE] *Lipid Profile [facility] [employer] Work Phone: Payers Date Payer Category Payer Unknown [id number] 1970 Unknown [id number] 1970 Unknown [id number] 1970 Unknown [id number] Summary Purpose Family History No Family History Records FoundNo Family History Records FoundNo Family History Records FoundNo Family History Records Found Advance Directives No Advanced Directives Records FoundNo Advanced Directives Records FoundNo Advanced Directives Records FoundNo Advanced Directives Records Found Additional Source Comments INFORMATION SOURCE (unrecogn ized section and content) DATE CREATED AUTHOR AUTHOR'S ORGANIZ ATION 05/21/2021 [facility] DATE CREATED AUTHOR AUTHOR'S ORGANIZ ATION 05/22/2022 [facility] DATE CREATED AUTHOR AUTHOR'S ORGANIZ ATION 05/20/2023 [facility] FOR RECORDS PERTAINING TO PATIENTS WHO ARE OR HAVE BEEN ENROLLED IN A CHEMICAL DEPENDENCY/SUBSTANCEABUSE PROGRAM, SOME INFORMATION MAY BE OMITTED. This clinical summary was aggregated from multiple sources. Caution should be exercised in using it in the provision of clinical care. This summary normalizes information from multiple sources, and as a consequence, information in this document may materially change the coding, format and clinical context of patient data. In addition, data may be omitted in some cases. CLINICAL DECISIONS SHOULD BE BASED ON THE PRIMARY CLINICAL RECORDS. [facility]. provides no warranty or guarantee of the accuracy or completeness of information in this document.
== END | disposition home or self-care (01) ==
LOC: OPBI 07:50
PROVIDERS: PCP Family Medicine; Referring Provider Family Medicine; Visit Provider Family Medicine
DX: Z12.31 Encounter for screening mammogram for malignant neoplasm of breast (principal); Z80.3 Family history of malignant neoplasm of breast
CPT/HCPCS: 77063; 77067

== ENCOUNTER → 2024-10-19 | Outpatient (CLI) | payer BC, SELFPAY ==
--- NOTE | 2024-10-19 16:02 | BI_ITS ---
EXAM: SCRN MAMM (CAD)W/MONIKA BILAT DATE: 10/19/2024 CLINICAL HISTORY: F, Age 54 y/o , SCREENING BREAST CANCER RISK ASSESSMENT: Not reported TECHNIQUE: Bilateral screening digital breast tomosynthesis with 2D and 3D images. Computer aided detection. COMPARISON: None available FINDINGS: TISSUE DENSITY: The breast tissue is composed of scattered area of fibroglandular density. Bilateral Breast Mammographic Findings: Postsurgical changes of bilateral reduction mammoplasty. Left breast: There is an asymmetry in the slightly lower left breast at mid depth. There are 2 asymmetries in the upper and central right breast at anterior and mid depth respectively seen on the MLO view. BI/SCRN MAMM (CAD)W/MONIKA BILAT IMPRESSION: OVERALL FINAL ASSESSMENT: BIRADS 0 Incomplete: Need additional imaging evaluati on and/or prior mammograms for comparison. RECOMMENDATION: Incomplete: Need additional imaging evaluation with bilateral diagnostic mammog elan and ultrasound. A letter with findings and recommendations will be mailed to the patient. Reading Location: [id number]
== END | disposition home or self-care (01) ==
LOC: OPBI 16:01
PROVIDERS: PCP Family Medicine; Referring Provider Family Medicine; Visit Provider Family Medicine
DX: Z12.31 Encounter for screening mammogram for malignant neoplasm of breast (principal)
CPT/HCPCS: 77063; 77067

== ENCOUNTER → 2024-10-28 | Outpatient (CLI) | payer BC, SELFPAY ==
--- NOTE | 2024-10-28 13:02 | BI_ITS ---
EXAM: DIAG MAMM W/CAD, BILAT N/A CLINICAL HISTORY: F, Age 54 y/o , ABD SCREENING TECHNIQUE: Bilateral Diagnostic digital breast tomosynthesis with 2D and 3D images. Computer aided detection. Compression spot views were obtained. COMPARISON: Prior exam(s) dated October 19, 2024 and July 03, 2023.. FINDINGS: TISSUE DENSITY: The breast tissue is composed of scattered area of fibroglandular density. Bilateral Breast Mammographic Findings: No significant masses, calcifications or other abnormalities are identified. No suspicious masses, areas of developing architectural distortion, or suspicious calcifications. There has been no significant interval change. BI/DIAG MAMM W/CAD, BILAT IMPRESSION: OVERALL FINAL ASSESSMENT: BIRADS 2 BENIGN FINDING. RECOMMENDATION: Routine annual follow-up in 1 Year A letter with findings and recommendations will be mailed to the patient. Reading Location: [place] [address]
== END | disposition home or self-care (01) ==
PROVIDERS: PCP Family Medicine; Referring Provider Family Medicine; Visit Provider Family Medicine
DX: N64.89 Other specified disorders of breast (principal)
CPT/HCPCS: 77066